=== PATIENT | male | born 1985 | race Caucasian/White ===

== ENCOUNTER 2020-04-03 18:42 | Emergency (ER) | payer OTHER ==
[~2020-04-03] VITALS: Ht 198.1 cm; Wt 101.6 kg
[~2020-04-03 18:42] MED LIST: LIDOCAINE VISC100 M1 MM; NOHOMEMEDICATIONS; NORCO 5-325 TA1 EACH PO; PENICILLIN VK500 M1 PO
[2020-04-03] MEDS ORDERED: HYDROXYZINE HCL25 M2 PO (19:42)
[2020-04-03] MEDS ORDERED: BACTRIM DS TAB1 EACH PO (19:42)
[2020-04-03 19:48] VITALS: BP 152/89
== END 2020-04-03 19:48 | disposition home or self-care (01) ==
LOC: M.ERS 18:42
DX: T22.012A Burn of unspecified degree of left forearm, initial encounter (principal); T22.011A Burn of unspecified degree of right forearm, initial encounter; T25.022A Burn of unspecified degree of left foot, initial encounter; T31.0 Burns involving less than 10% of body surface; L25.9 Unspecified contact dermatitis, unspecified cause; T79.9XXA Unspecified early complication of trauma, initial encounter; X12.XXXA Contact with other hot fluids, initial encounter; Y93.89 Activity, other specified; Y92.89 Other specified places as the place of occurrence of the external cause; Y99.0 Civilian activity done for income or pay